=== PATIENT | female | born 1995 | race African-American/Black ===

== ENCOUNTER 2022-10-16 17:38 | Emergency (ER) | payer OTHER ==
[~2022-10-16] VITALS: Ht 162.6 cm; Wt 82.0 kg
[~2022-10-16 17:38] MED LIST: BENZ100C86 PO; ONDA4TAB5 MT; POTA-205 MT
[2022-10-16 17:47] VITALS: BP 106/60
[2022-10-16 18:13] LABS: BASOPHILS % 0.3 % (0.0-2.0); EOSINOPHILS % 0.7 % (0.0-5.0); HEMATOCRIT. 39.4 % (36.0-48.0); HEMOGLOBIN. 13.5 g/dL (12.0-16.0); LYMPHOCYTES % 25.8 % (20.0-50.0); MEAN CORPUSCULAR HEMOGLOBIN 30.4 pg (28.0-32.0); MEAN CORPUSCULAR VOLUME 88.6 fL (81.0-99.0); MEAN PLATELET VOLUME 9.3 fl (7.4-10.4); MONOCYTES % 6.3 % (2.0-8.0); NEUTROPHILS % 66.9 % (40.0-76.0); PLATELET 194 x1000/uL (130-400); RED BLOOD CELL COUNT 4.45 mill/uL (4.2-5.4); RED CELL DISTRIBUTION WIDTH 14.2 % (11.6-14.6)
[2022-10-16 18:28] LABS: CHLORIDE 109 mEq/L (98-107)
[2022-10-16] MEDS ORDERED: NAP5EC PO ×3 (23:24→23:36)
== END 2022-10-16 23:58 | disposition home or self-care (01) ==
LOC: ER 17:38
DX: N64.4 Mastodynia (principal); R51.9 Headache, unspecified
CPT/HCPCS: 36415; 71045; 80053; 84484; 85025; 99284